=== PATIENT | female | born 1995 | race Caucasian/White ===

== ENCOUNTER 2016-02-09 23:16 | Emergency (ER) | payer MEDICAID ==
[2016-02-09 23:24] VITALS: TEMP 98.8; BMI 36.6
--- NOTE | 2016-02-10 01:27 | EDPRACDOC ---
- General Information Chief Complaint: Sore Throat Stated Complaint: VOMITING, COUGH & SORE THROAT Time Seen by Provider: 02/10/16 01:24 Information Source: Patient, Parent Home Medications: Home Medications Hydrocodone/Acetaminophen [Lortab 5-325 mg Tablet] 1 each PO Q4H PRN #15 tablet 04/23/15 Ondansetron [Zofran Odt] 4 mg PO Q6H PRN #10 tab.rapdis 04/23/15 Azithromycin [Zithromax] 250 mg PO DAILY #6 tablet 02/10/16 Promethazine [Phenergan] 25 mg PO Q8H PRN #30 tab 02/10/16 Allergies/Adverse Reactions: Allergies Allergy/AdvReac Type Severity Reaction Status Date / Time ketorolac tromethamine Allergy Anaphylaxis Verified 04/23/15 07:42 [From Toradol] * Pork/Porcine Containing Allergy Anaphylaxis Verified 02/09/16 23:24 Products * venom-honey bee Allergy Anaphylaxis Verified 04/23/15 07:42 [bee venom (honey bee)] * - History of Present Illness Onset: THURSDAY HPI: PATIENT IS 9 WEEKS . SHE HAS HAD A SORE THROAT FOR 1 WEEK WITH COUGH AND CONGESTION. NOTES INTERMITTENT NOSEBLEEDS. NO FEVER. NAUSEA AND VOMITING X2. PATIENT WENT TO URGENT CARE AND WAS GIVING CEFDINIR WHICH SHE HAS BEEN TAKING WITHOUT RELIEF. Sore Throat Symptoms: Reports: Pain White Spots Location: Reports: Pharynx Recent: Reports: Treated Infection, Antibiotic Use Relevant History of: Reports: None Pain Severity: Reports: Mild Urinary Output: Normal Oral Intake: Normal Associated Signs and Symptoms: Reports: Cough, Nasal Symptoms ED Past Medical History - History Reviewed Yes Nurses notes reviewed and agree except as marked Travel Outside of [place] in the Last 3 Months?: No - Patient Medical History Psychological History: Denies: Depression Systemic History: Denies: Cancer, Anemia, Lupus - Family Medical History Reports: Diabetes (MGM, MGF, PGF, PGM). Denies: Hypertension, Cancer, Stroke, Cardiac Disorders - Social Medical History Smoking Status: Never smoker ETOH: None Substance Abuse: None Lives With: Family Lives In: Home EDM Review of Systems - Review of Systems ROS Negative Except as Marked: Yes All systems reviewed and were negative except as marked Constitutional: No Symptoms Reported. negative: Fever, Chills, Weakness, Fatigue, Loss of Appetite Eyes: No Symptoms Reported. negative: Redness, Blurred Vision, Double Vision, Discharge, Pain, Light Sensitive, Photophobia Ears: No Symptoms Reported. negative: Pain, Hearing Loss, Drainage, Ear Pulling Throat: Pain. negative: Swelling Nose: No Symptoms Reported. negative: Congestion, Bleeding, Discharge, Injection, Swelling, Deformity, Ecchymosis, Tender, Abrasion, Laceration Mouth: No Symptoms Reported. negative: Pain, Drooling Respiratory: Cough. negative: Barky Cough, Brassy Cough, Hemoptysis, Shortness of Breath, Wheezing Cardiovascular: No Symptoms Reported. negative: Chest Pain, Palpitations, Syncope, Edema, Orthopnea, PND, Skin Mottling, Cyanosis Gastrointestinal: Nausea, Vomiting. negative: Constipation, Diarrhea, Formula Intolerance, Melena, Pain Genitourinary: No Symptoms Reported. negative: Dysuria, Hematuria, Frequency, Discharge, Bleeding, Testicular Pain, Neurological: No Symptoms Reported. negative: Headache, Dizziness, Seizure, Numbness, Weakness, Speech Difficulty, Gait Difficulty Musculoskeletal: No Symptoms Reported. negative: Neck, Chestwall, Ribs, Back, Shoulder, Arm, Elbow, Forearm, Wrist, Hand, Pelvis, Hip, Femur, Knee, Leg, Ankle , Foot Integumentary: No Symptoms Reported. negative: Itching, Rash, Bruising, Wound Allergic/Immunologic: No Symptoms Reported. negative: Hives, Itching Hematologic: No Symptoms Reported. negative: Lymphadenopathy, Easy Bruising, Easy Bleeding Endocrine: No Symptoms Reported. negative: Weight Gain, Weight Loss Psychiatric: No Symptoms Reported. negative: Anxiety, Depression, Hallucinations, Insomnia, Suicidal - Physical Exam Constitutional: Alert (Awake), No apparent distress Oriented to: Time, Person, Place Last recorded Vital Signs: Last Vital Signs Temp 98.8 F 02/09/16 23:20 Pulse 102 02/09/16 23:20 Resp 20 02/09/16 23:20 BP 139/65 02/09/16 23:20 Pulse Ox 97 02/09/16 23:20 Oxygen Pulse Oxygen Saturation 97 O2 Device Room Air Oxygen Flow Rate Fraction of Inspired Oxygen ( FIO2) - HEENT Head: Normal ( normocephalic) Eye Exam: Normal (PERRL, EOMI, Sclera white) Oropharynx: Red, Tonsillar Hypertrophy Tympanic Membrane: Bulging (RIGHT) ENT EAC: Normal TMJ: Normal Nose: No Symptoms Reported (septum midline) Neck: Normal (FROM, trachea at midline) - Respiratory/Cardiovascular Respiratory: Normal - CTA (BBS clear to auscultation without adventitious sounds ) Cardiovascular: Normal (RRR without murmur, gallop or rub) - GI Auscultation: Normal (NABS) Palpation: Normal (Soft,No rebound or guarding, non distended) Tenderness: Non tender Patel's Sign: Negative - Musculoskeletal Back: Normal (Non-Tender) Extremities: Normal (Normal tone, Pulses 2+ No cyanosis or edema, FROM) - Integumentary Skin: Normal, Warm, Dry Lymphatics: Normal (no adenopathy) - Neurologic Memory Impaired: Normal Motor Function: Normal (Normal tone, Pulses 2+ No cyanosis or edema, FROM) Cranial Nerve: Normal (CN II-X11 intact sensation, strength 5/5) Cerebellar: Normal Mood Description: Normal Perception: Normal - Results Microbiology 02/09/16 23:25 Group A Streptococcus Rapid Screen - Final Throat - Rapid Strep NEGATIVE ("NORMAL" value = "NEGATIVE".) Decision Time to Discharge: 02:19 - Departure Yes I personally saw and evaluated the patient. Disposition: Home Condition: Good Final Diagnosis: Pharyngitis, Influenza A URI (upper respiratory infection) Qualifiers: URI type: unspecified URI Qualified Code(s): J06.9 - Acute upper respiratory infection, unspecified Instructions: Pharyngitis (ED), Influenza (ED) Education/Counseling Given To: Patient Education/Counseling Given Regarding: Diagnosis, Treatment, Prognosis, Follow Up Referrals: Niko Norman MD [Primary Care Provider] - One Week Prescriptions: Azithromycin [Zithromax] 250 mg PO DAILY #6 tablet Promethazine [Phenergan] 25 mg PO Q8H PRN #30 tab PRN Reason: Nausea/Vomiting
[2016-02-10 02:32] VITALS: BP 136/62; PULSE 96
== END 2016-02-10 02:32 | disposition home or self-care (01) ==
LOC: ED 23:16
DX: O99.511 Diseases of the respiratory system complicating pregnancy, first trimester (principal); J09.X2 Influenza due to identified novel influenza A virus with other respiratory manifestations; J02.9 Acute pharyngitis, unspecified; Z3A.08 8 weeks gestation of pregnancy
CPT/HCPCS: 86308; 87804; 87880; 99283